=== PATIENT | male | born 1980 | race Caucasian/White ===

== ENCOUNTER 2025-05-14 15:09 | Emergency (ER) | payer MEDICAID ==
[~2025-05-14] VITALS: Ht 175.3 cm; Wt 84.0 kg
[2025-05-14 15:13] VITALS: O2SAT 97
[2025-05-14 16:49] LABS: BASOPHILS % 0.7 % (0.0-2.0); EOSINOPHILS % 0.6 % (0.0-5.0); HEMATOCRIT. 41.3 % (42.0-52.0); HEMOGLOBIN. 14.0 g/dL (14.0-18.0); LYMPHOCYTES % 30.1 % (20.0-50.0); MEAN PLATELET VOLUME 8.4 fl (7.4-10.4); MONOCYTES % 5.8 % (2.0-8.0); NEUTROPHILS % 62.8 % (40.0-76.0); PLATELET 234 x1000/uL (130-400); RED BLOOD CELL COUNT 4.63 mill/uL (4.7-6.1); RED CELL DISTRIBUTION WIDTH 13.4 % (11.6-14.6)
[2025-05-14 17:04] LABS: CREATININE 0.8 mg/dL (0.6-1.3); UREA NITROGEN BLOOD < 5 mg/dL (9-23)
[2025-05-14 17:05] LABS: TROPONIN I HIGH SENSITIVITY 4 ng/L (3.0-53)
[2025-05-14 21:03] VITALS: BP 128/80; PULSE 75; RESP 19; TEMP 36.9; O2SAT 100
== END 2025-05-14 21:04 | disposition home or self-care (01) ==
LOC: ER 15:09
DX: B34.9 Viral infection, unspecified (principal); R05.9 Cough, unspecified; R00.2 Palpitations; R06.02 Shortness of breath; R09.81 Nasal congestion; F31.9 Bipolar disorder, unspecified; Z20.822 Contact with and (suspected) exposure to COVID-19
CPT/HCPCS: 36415; 71045; 80048; 84484; 85025; 93005; 99285